=== PATIENT | female | born 1995 | race Two or more races ===

== ENCOUNTER 2018-07-30 10:17 | Emergency (ER) | payer MEDICAID, OTHER ==
[~2018-07-30] VITALS: Ht 154.9 cm; Wt 77.3 kg
[2018-07-30 10:49] VITALS: BP 121/80
--- NOTE | 2018-07-30 11:18 | NUR ---
First contact with pt. EMILIA. Pt sitting in hospital gown on [facility]. Pt states, "I woke up with a headache this morning. I have had a stuffy nose for a week. I have taken cold medicine for it. This morning my right eye was closed with discharge and it is red and irritated, it hurts to touch, and it is sensitive to light. My vision in my right eye is blurry. I don't wear glasses. My kids have been sick at home." Pt denies cp, sob, n/v/d, loss of conciousness, lightheadedness, or trauma. All safety measures in place. Pt connected to NIBP and continous pulse ox.
[2018-07-30] MEDS ORDERED: KETOROLAC 30 MG/1 ML IM ONE (12:00)
[2018-07-30] MEDS ORDERED: KETOROLAC 30 MG/1 ML ONE (12:10)
== END 2018-07-30 12:53 | disposition home or self-care (01) ==
LOC: ED 12:47
DX: J01.00 Acute maxillary sinusitis, unspecified (principal); G43.009 Migraine without aura, not intractable, without status migrainosus; H10.021 Other mucopurulent conjunctivitis, right eye
CPT/HCPCS: 96372; 99283; J1885